=== PATIENT | female | born 1965 | race Caucasian/White ===

== ENCOUNTER → 2019-10-02 | Outpatient (CLI) | payer OTHER, SELFPAY | END | disposition home or self-care (01) | LOC: MTDU 10-03 08:06 | PROVIDERS: PCP Family Medicine; Referring Provider Family Medicine; Visit Provider Family Medicine | DX: Z03.818 Encounter for observation for suspected exposure to other biological agents ruled out (principal) | CPT/HCPCS: 87635; G2023; U0003 ==

== ENCOUNTER 2022-12-28 10:29 | Emergency (ER) | payer OTHER, SELFPAY ==
[2022-12-28 10:31] VITALS: BP 125/71; PULSE 90; RESP 16; TEMP 36.4; O2SAT 98; BMI 22.0
--- NOTE | 2022-12-28 10:32 | NURSING ---
NO OLD EKGS
--- NOTE | 2022-12-28 10:41 | EKG12_ITS ---
Test Reason : LOW BP Blood Pressure : / mmHG Vent. Rate : 084 BPM Atrial Rate : 084 BPM P-R Int : 128 ms QRS Dur : 074 ms QT Int : 378 ms P-R-T Axes : 071 067 053 degrees QTc Int : 446 ms Normal sinus rhythm Normal ECG Confirmed by BARRETT BRUNNER, MICHELET ([id number]), newspaper editor VIANNEY HOLLOWAY ([id number]) on 12/31/2022 1:52:07 PM Referred By: GERTRUDIS Confirmed By:MICHELET HYDE MD
--- NOTE | 2022-12-28 10:42 | EX.ED.DYSGE1 ---
HPI History of Present Illness Chief Complaint: Hypotension Narrative Narrative: 7-year-old female presenting with lower chest discomfort on the left. She states it feels like a muscle spasm, and she also states it feels like there is a gas bubble up under her left ribs and it feels sharp. Onset of this was about an hour and half ago. She noted she was feeling lightheaded when her blood pressure was checked and she was 50/30. For EMS she was 80/64. Currently her blood pressure is 125/71. She still states she has 6/10 comfort in the left lower chest. Patient denies any trauma. She states he was otherwise healthy prior to this. She states her systolic blood pressure is usually around 100. She does not take any blood pressure medicine. She states she is fairly healthy but has not had routine lab work very often. PFSH PFSH Allergy/AdvReac Type Severity Reaction Status Date / Time No Known Allergies Allergy Verified 06/16/15 17:15 Social History Smoking Status: Current every day smoker tobacco type: cigarettes ROS ROS ED ROS Narrative Lightheadedness Constitutional Constitutional ED: Denies chills, fever(s) or sweats Eyes Eyes: Denies blurry vision or change in vision ENT ENT ED: Denies ear pain or sore throat Cardiovascular Cardiovascular: Reports chest pain; Denies palpitations or racing heartbeat Respiratory/Chest Respiratory/Chest: Denies cough, dyspnea or sputum Gastrointestinal Gastrointestinal: Denies abdominal pain, constipation, diarrhea, nausea or vomiting Genitourinary Genitourinary ED: Denies dysuria, hematuria or urinary frequency Musculoskeletal Musculoskeletal: Denies arthralgias, myalgias or neck pain Integumentary Denies abscess, Abrasions or rash Neurologic Neurologic: Denies headache(s), paresthesias or weakness Psychiatric Psychiatric: Denies anxiety, depression, suicidal ideation or suicidal thoughts Endocrine Endocrinology: Denies polydipsia or polyuria EXAM Physical Exam Const Vital Signs: 12/28/22 10:31 12/28/22 10:34 12/28/22 14:04 Temperature 97.6 F L Temperature Source Temporal Pulse Rate 90 90 Respiratory Rate 16 21 H Respiratory Effort Splinting Respiratory Pattern Tachypnea Blood Pressure 125/71 H 123/86 H Blood Pressure Mean 89 98 Pulse Ox 98 97 Oxygen Delivery Method Room Air Room Air Positive well nourished General Appearance ED: Negative for pallor HEENT Reports moist mucous membranes Eyes PERRL and EOMs intact bilaterally General Eye ED: Negative for pale conjunctiva Chest Wall inspection of chest normal and palpation of chest normal Resp normal respiratory effort and clear to auscultation bilaterally Effort and Inspection: Negative for retractions Auscultation: Negative for rales, rhonchi or wheezes Cardio regular rate and regular rhythm GI normal to inspection, nondistended, normoactive bowel sounds Neuro oriented x3 and CN's II-XII intact bilaterally Sensorium / Orientation: alert Motor Exam: strength 5/5 throughout Psych mental status grossly normal Skin no rashes or lesions noted General Skin Exam: Negative for jaundice or pallor MDM MDM MDM Narrative Medical decision making narrative: Patient presenting with chest pain. Differential includes orthostatic hypotension, dehydration, electrolyte abnormalities, anemia, dysrhythmia, acute coronary syndrome, pneumonia, aortic dissection, PE, rib fracture, costochondritis, CHF, pneumothorax. Pneumothorax is unlikely given that the patient has equal symmetric breath sounds and chest wall rise. Dissection also unlikely given she is not having ripping tearing pain nor does it radiate to the back. We will obtain a CBC to assess white blood cell count, hemoglobin, platelets. BMP to assess renal function and electrolytes. High-sensitivity troponin EKG to assess for ischemia and dysrhythmia. Chest x-ray to rule out pneumonia, pneumothorax. D-dimer will be obtained given that the patient is stating she has pain with deep inspiration she has sharp pain. Currently patient's blood pressure 125/71. Heart rate 90, rate 16, 98% on room air. She declines analgesia at this time. Patient given normal saline 1 L bolus. EKG on my interpretation shows a sinus rhythm with a ventricular rate of 84 bpm without sign of ischemic change or dysrhythmia. Chest x-ray on my interpretation shows no acute process. CBC shows a normal white blood cell count of 10.3. Hemoglobin 14. Platelets 252. Renal function electrolytes unremarkable with exception of a potassium of 3.3. D-dimer negative at 0.27. High-sensitivity troponin less than 3. On reevaluation patient still having some mild discomfort she requested Toradol which was given. Delta troponin will be obtained. The patient remained normotensive throughout her stay in the ER. Delta troponin is 4. No significant interval change. Patient states the Toradol took her pain away. She feels like she wants to go home and go to sleep. Patient's work-up ultimately negative I feel this is reasonable. Believe that she likely vagal while she was having this abdominal pain/chest pain that she felt like a spasm. She discharged home in stable condition. Impression: 1. Hypertension 2. Near syncope 3. Chest wall pain Lab Data Attestation: I reviewed the patient's lab results. Labs: Laboratory Results - last 24 hr 12/28/22 12/28/22 10:30 12:54 WBC 10.3 RBC 4.76 Hgb 14.0 Hct 43.4 MCV 91.2 MCH 29.4 MCHC 32.3 RDW Std Deviation 44.2 H RDW Coeff of Kishan 13.2 Plt Count 252 MPV 10.2 Immature Gran % (Auto) 0.400 Neut % (Auto) 74.0 H Lymph % (Auto) 18.6 L [place] % (Auto) 5.7 Eos % (Auto) 1.0 Baso % (Auto) 0.3 Absolute Neuts (auto) 7.6 Absolute Lymphs (auto) 1.92 Nucleated RBC % 0 D-Dimer Quant (PE/DVT) < 0.27 L Sodium 140 Potassium 3.3 L Chloride 107 Carbon Dioxide 29.0 Anion Gap 4 L BUN 9 Creatinine 0.83 Estim Creat Clear Calc 58.43 Est GFR (MDRD) Af Amer 90 Est GFR (MDRD) Non-Af 75 BUN/Creatinine Ratio 10.8 Glucose 142 H Calcium 8.6 Troponin I High Sens < 3 L 4 Radiography Diagnostic Testing: Clinical Impression(s) from Imaging Studies Chest X-Ray 12/28/22 10:45 IMPRESSION: No acute abnormality is seen. Electronically Signed: Juveanl Dalton MD at 11:14 EDT , Discharge Plan Triage Chief Complaint: Hypotension ED Provider: Westley Christianson Dx/Rx/DC Orders Instructions: ED Chest Pain, Noncardiac, ED Low Blood Pressure, All Causes Primary Care Provider: Jonah Keith Referrals: Jonah Keith MD [Primary Care Provider] - Disposition Disposition: Home, Self Care Discharge Date/Time: 12/28/22 14:07
[2022-12-28] MEDS: 0.9% Normal Saline (1000mL) 1,000 ML 1000 ML IV (10:44)
--- NOTE | 2022-12-28 10:45 | RAD_ITS ---
STUDY: X-RAY CHEST REASON FOR EXAM: Female, 57 years old. Chest pain TECHNIQUE: Single AP portable view of the chest. COMPARISON: None. FINDINGS: EKG electrodes are seen. The lungs are clear and expanded. There is no demonstrated pleural abnormality. Normal size heart. Normal mediastinum and segundo. Normal visualized pulmonary arteries. There is atherosclerotic tortuosity of the aortic arch and descending thoracic aorta. Normal visualized thoracic spine. Normal visualized ribs, clavicles, and shoulders. There is no demonstrated abnormality of the visualized soft tissue structures of the upper abdomen. RAD/Chest 1 View (Portable) IMPRESSION: No acute abnormality is seen. Electronically Signed: Juvenal Dalton MD at 11:14 EDT ,
[2022-12-28 10:55] LABS: Absolute Lymphocyte Count 1.92 X10^3/uL (0.83-4.51); Absolute Neutrophil Count 7.6 X10^3/uL (2.0-7.7); Basophil# 0.03 X10^3/uL; Basophil% 0.3 % (0-1); Hematocrit 43.4 % (37-47); Lymphocyte # 1.92 X10^3/ul (0.83-4.51); Lymphocyte % 18.6 % (19-41); Mean Corp Hgb Conc 32.3 g/dL (32-36); Mean Corpuscular Hgb 29.4 pg (27.0-32.0); Mean Corpuscular Volume 91.2 fL (81-99); Mean Platelet Vol. 10.2 fl (6.2-12.0); Monocyte# 0.59 X10^3/uL; Monocyte% 5.7 % (0-10); NRBC Flagged by Analyzer 0 % (0-5); Neutrophil # 7.62 X10^3/uL (2.7-7.7); Platelet Count 252 K/mm3 (150-450); RBC Distribution Width CV 13.2 % (11.6-14.6); RBC Distribution Width SD 44.2 fl (35.1-43.9); Red Blood Count 4.76 M/mm3 (4.2-5.4); White Blood Count 10.3 K/mm3 (4.4-11.0)
[2022-12-28 11:07] LABS: D-Dimer Quantitative (DVT/PE) < 0.27 FEU/ug/m (0.27-0.49)
[2022-12-28 11:10] LABS: Anion Gap 4 (5-15); BUN 9 mg/dL (7-18); BUN/Creat Ratio 10.8 RATIO (10-20); Calcium,Total 8.6 mg/dL (8.5-10.1); Chloride 107 mmol/L (98-107); Creatinine, Serum 0.83 mg/dL (0.55-1.02); EST Glomerular Filtration Rate 75 mL/min (>60); Est Glom Filt Rate - Afr Amer 90 mL/min (>60); Estimated Creatinine Clearance 58.43 ml/min; Glucose 142 mg/dL (74-106); Potassium 3.3 mmol/L (3.5-5.1); Sodium Level 140 mmol/L (136-145); Troponin-I HS (w/2H Reflex) < 3 pg/mL (3.0-54.0)
[2022-12-28 12:46] LABS: Reflex Troponin-HS? (from REC) Y
[2022-12-28] MEDS: Ketorolac 30 MG/ML Syringe 15 MG IV (13:14)
[2022-12-28 13:15] LABS: Troponin-I HS 4 pg/mL (3.0-54.0)
[2022-12-28 14:04] VITALS: BP 123/86; PULSE 90; RESP 21; O2SAT 97
== END 2022-12-28 14:07 | disposition home or self-care (01) ==
PROVIDERS: Emergency Provider Student in an Organized Health Care Education/Training Program; PCP Family Medicine; Visit Provider Student in an Organized Health Care Education/Training Program
DX: I95.9 Hypotension, unspecified (principal); R55 Syncope and collapse; F17.210 Nicotine dependence, cigarettes, uncomplicated; I10 Essential (primary) hypertension; R07.89 Other chest pain
CPT/HCPCS: 71045; 80048; 84484; 85025; 85379; 93005; 96361; 96374; 99285; A4216